=== PATIENT | female | born 1985 | race Two or more races ===

== ENCOUNTER → 2024-01-14 | Outpatient (CLI) | payer BC, SELFPAY ==
--- NOTE | 2024-01-14 07:30 | XR_ITS ---
Examination: Breast ultrasound complete, bilateral Date and time of exam: January 14, 2024 0750 hours INDICATIONS: Palpable lumps in the upper right left breast note is beginning 4 years ago, breast sonography October 17, 2022 bilateral breast cysts Technique: Real-time grayscale ultrasonographic imaging bilateral breasts, including all 4 quadrants as well as nipple retroareolar and axillary regions. Findings: Sonographic images right breast 12:00 oval mass lobular margins 9 x 5 x 9 mm 2:00 oval mass lobular margins 8 x .9 mm Multiple benign cysts Sonographic images left breast 2:00 oval mass partially indistinct lobular margins 12 x 6 x 10 mm 6:00 oval mass partially indistinct lobular margins 25 x 16 mm Benign cysts IMPRESSION: BI-RADS Category 4: Suspicious for malignancy Suspicious nodules left breast 2:00 6:00, biopsy is needed to exclude breast carcinoma, these nodules are amenable to ultrasound-guided breast biopsy for diagnosis
--- NOTE | 2024-01-14 08:30 | XR_ITS ---
Examination: Screening digital mammography, bilateral Computer aided detection 3-D breast Tomosynthesis, bilateral Date and time of exam: January 14, 2024 0729 hours Compared to mammograms dating to September 15, 2020 Indication: Screening Technique: Nonmagnified MLO, CC views of the breasts to been obtained, reconstructed from 3-D Tomosynthesis images. R2 computer aided detection program utilized for evaluation of suspicious masses and/or abnormal calcifications. 3-D Tomosynthesis images obtained. Findings: The breasts are extremely dense, which limits the sensitivity of mammography Benign calcifications. No suspicious masses Impression: BI-RADS category II: Benign Findings. Recommend 1 year follow-up mammogram. Given the breast sonogram examination October 17, 2022 indicating right breast 12:00 3:00 nodules, follow-up bilateral breast sonography strongly recommended
[2024-01-14 10:16] LABS: Sed Rate (ESR) 15 mm/hr (0-20)
[2024-01-14 10:17] LABS: Creatinine,Random Urine 183 mg/dL (30-125); Protein Total, Random Urine 11 mg/dL (1-14)
[2024-01-14 10:19] LABS: Basophils % (Auto) 1 % (0-2.5); Eosinophils # (Auto) 0.2 Thou/mm3 (0.0-0.5); Eosinophils % (Auto) 3 % (0-10); Hemoglobin 14.7 g/dL (12.0-16.0); Immature Granulocytes % (Auto) 0 % (0-0); Immature Granulocytes Auto 0.02 Thou/mm3 (0.00-0.00); Lymphocytes # (Auto) 1.6 Thou/mm3 (1.0-4.8); Lymphocytes % (Auto) 22 % (10-50); Mean Corpuscular HGB Conc 33.4 g/dl (31.0-37.0); Mean Corpuscular Hemoglobin 28.2 pg (25.0-35.0); Mean Corpuscular Volume 84 fL (80-100); Monocytes # (Auto) 0.5 Thou/mm3 (0.0-0.8); Monocytes % (Auto) 7 % (0-12); Neutrophils # (Auto) 4.9 Thou/mm3 (1.8-7.7); Neutrophils % (Auto) 68 % (37-80); Nucleated Red Blood Cell % 0 /100 WBC (0); Platelet Count 278 Thou/mm3 (140-440); RDW Standard Deviation 44.9 fL (36.4-46.3); Red Blood Count 5.22 Miln/mm3 (4.00-5.20); White Blood Count 7.2 Thou/mm3 (3.6-11.0)
[2024-01-14 10:27] LABS: Alanine Aminotransferase 16 U/L (10-49); Aspartate Amino Transferase 15 U/L (0-34); C-Reactive Protein < 0.4 mg/dL (0.0-0.9); Creatinine (Component) 0.9 mg/dL (0.6-1.3); Free T3 2.8 pg/mL (2.3-4.2); Free T4 (Free Thyroxine) 0.84 ng/dL (0.89-1.76); Thyroid Stimulating Hormone 5.37 uIU/mL (0.55-4.78); eGFR > 60 See Note
[2024-01-14 18:14] LABS: RA Screen Negative (Negative)
[2024-01-20 06:48] LABS: PTT-LA Screen 29 seconds (< OR = 40); dRVVT Screen 36 seconds (< OR = 45)
[2024-01-24 13:51] LABS: Cardiolipin Ab (IgA) <2.0 APL-U/mL; Cardiolipin Ab (IgG) <2.0 GPL-U/mL; Sm Antibody <1.0 NEG AI (<1.0 NEGATIVE)
[2024-01-26 06:43] LABS: ANA Screen, IFA POSITIVE (NEGATIVE); Cardiolipin Ab (IgM) <2.0 MPL-U/mL; Complement Component C3* 128 mg/dL (83-193); Complement Component C4c* 23 mg/dL (15-57); DNA (ds) Antibody* <1 IU/mL; HLA-B27 Antigen* NEGATIVE (NEGATIVE); Parvovirus B19 Ab IgG 4.4; Parvovirus B19 Ab IgM 0.2; Sm/RNP Antibody <1.0 NEG AI (<1.0 NEGATIVE); Thyroglobulin Antibodies* 677 IU/mL (< OR = 1); Thyroid Peroxidase Antibodies* 124 IU/mL (<9)
== END | disposition home or self-care (01) ==
LOC: CDIM 07:18 → COPL 08:15
PROVIDERS: PCP Internal Medicine; Referring Provider Internal Medicine Rheumatology; Visit Provider Radiology Diagnostic Radiology
DX: Z12.31 Encounter for screening mammogram for malignant neoplasm of breast (principal); R92.323 Mammographic fibroglandular density, bilateral breasts; R76.0 Raised antibody titer
CPT/HCPCS: 36415; 76641; 77063; 77067; 82565; 82570; 84156; 84439; 84443; 84450; 84460; 84481; 85025; 85613; 85652; 85730; 86038; 86039; 86140; 86147; 86160; 86225; 86235; 86376; 86430; 86747; 86800; 86812

== ENCOUNTER → 2024-07-13 | Outpatient (CLI) | payer OTHER, SELFPAY ==
--- NOTE | 2024-07-13 12:39 | XR_ITS ---
Examination: Breast ultrasound, unilateral, left complete Date and time of exam: July 13, 2024 1246 hours INDICATIONS: Left breast palpable lump one year, ultrasound-guided breast biopsy 6:00 nodule left breast January 26, 2024, 6:00 nodule 25 x 16 mm Technique: Real-time robbins scale ultrasonographic imaging performed left breast including all 4 quadrants as well as nipple retroareolar and axillary region. Findings: 2:00 nodule lobular margins 10 x 9 mm 5:00 nodule lobular margins 7 x 6 mm 6:00 nodule lobular margins 17 x 18 mm 9:00 cyst 24 x 19 mm IMPRESSION: BI-RADS Category 3: Probably benign findings One additional 6 month left breast sonogram follow-up is needed to document stability of nodules described above
== END | disposition home or self-care (01) ==
PROVIDERS: PCP Family Medicine; Referring Provider Registered Nurse; Visit Provider Registered Nurse
DX: N63.21 Unspecified lump in the left breast, upper outer quadrant (principal); N63.23 Unspecified lump in the left breast, lower outer quadrant; N63.25 Unspecified lump in the left breast, overlapping quadrants; R92.332 Mammographic heterogeneous density, left breast
CPT/HCPCS: 76641

== ENCOUNTER → 2024-11-29 | Outpatient (CLI) | payer OTHER, SELFPAY ==
[2024-11-29 13:21] LABS: Basophils # (Auto) 0.0 Thou/mm3 (0.0-0.2); Basophils % (Auto) 0 % (0-2.5); Eosinophils # (Auto) 0.2 Thou/mm3 (0.0-0.5); Eosinophils % (Auto) 3 % (0-10); Hematocrit 39.5 % (36.0-46.0); Hemoglobin 13.3 g/dL (12.0-16.0); Immature Granulocytes Auto 0.01 Thou/mm3 (0.00-0.00); Lymphocytes # (Auto) 1.9 Thou/mm3 (1.0-4.8); Lymphocytes % (Auto) 26 % (10-50); Mean Corpuscular HGB Conc 33.7 g/dl (31.0-37.0); Mean Corpuscular Hemoglobin 28.5 pg (25.0-35.0); Mean Corpuscular Volume 85 fL (80-100); Monocytes # (Auto) 0.5 Thou/mm3 (0.0-0.8); Monocytes % (Auto) 6 % (0-12); Neutrophils # (Auto) 4.9 Thou/mm3 (1.8-7.7); Neutrophils % (Auto) 65 % (37-80); Nucleated Red Blood Cell # 0.00 Thou/mm3 (0.00-0.00); Nucleated Red Blood Cell % 0 /100 WBC (0); Platelet Count 259 Thou/mm3 (140-440); RDW Standard Deviation 39.0 fL (36.4-46.3); Red Blood Count 4.67 Miln/mm3 (4.00-5.20); White Blood Count 7.5 Thou/mm3 (3.6-11.0)
[2024-11-29 13:36] LABS: Vitamin B12 412 pg/mL (211-911); Vitamin D 25 Hydroxy Total 32.6 ng/mL (7.3-40.2)
[2024-11-29 13:40] LABS: Alanine Aminotransferase 15 U/L (10-49); Albumin, Serum 4.5 gm/dL (3.5-5.0); Albumin/Globulin Ratio 2.0 (1.2-2.2); Alkaline Phosphatase 67 U/L (46-116); Anion Gap 9 (7-16); Aspartate Amino Transferase 16 U/L (0-34); BUN/Creatinine Ratio 9 Ratio (12-20); Bilirubin,Total 0.8 mg/dL (0.3-1.2); Blood Urea Nitrogen 8 mg/dL (9-23); Calcium 9.8 mg/dL (8.3-10.6); Calcium (Corrected) 9.8 mg/dL (8.5-10.1); Carbon Dioxide 27.4 mMol/L (20.0-31.0); Cardiac Risk Estimate 3.8 RATIO (3.7-5.6); Chloride 106 mMol/L (98-107); Cholesterol 181 mg/dL (132-200); Creatinine (Component) 0.9 mg/dL (0.6-1.3); Free T3 3.9 pg/mL (2.3-4.2); Free T4 (Free Thyroxine) 1.00 ng/dL (0.89-1.76); Globulin 2.2 gm/dL (2.3-3.5); Glucose 96 mg/dL (74-106); HDL Cholesterol 48 mg/dL (40-60); LDL Cholesterol,Calculated 114 mg/dL (0-130); Osmolality,Calculated 281 (275-295); Potassium 4.2 mMol/L (3.4-5.1); Sodium 142 mMol/L (136-145); Thyroid Stimulating Hormone 1.44 uIU/mL (0.55-4.78); Total Protein 6.7 gm/dL (5.7-8.2); Triglycerides 96 mg/dL (30-150); eGFR > 60 See Note
[2024-11-29 13:58] LABS: Creatinine MALB Rnd Ur 166 mg/dL (30-125); Microalbumin, Random Urine < 3 mg/L (0-300)
[2024-11-29 14:04] LABS: Glucose Estimated Average 97 mg/dL (80-131); Hemoglobin A1C 5.0 % Hgb (4.8-6.0)
== END | disposition home or self-care (01) ==
PROVIDERS: PCP Family Medicine; Referring Provider Nurse Practitioner; Visit Provider Nurse Practitioner
DX: E03.9 Hypothyroidism, unspecified (principal); R73.03 Prediabetes
CPT/HCPCS: 36415; 80053; 80061; 82043; 82306; 82570; 82607; 83036; 84439; 84443; 84481; 85025